=== PATIENT | female | born 1960 | race African-American/Black ===

== ENCOUNTER 2018-09-03 09:29 | Emergency (ER) | payer MEDICAID ==
[~2018-09-03] VITALS: Ht 170.2 cm; Wt 88.0 kg
[2018-09-03] MEDS ORDERED: CYCLOBENZAPRINE 10MG TABLET PO ONE (11:00)
[2018-09-03] MEDS ORDERED: ACETAMINOPHEN 650MG/20.3ML UDC PO ONE (11:00)
[2018-09-03 13:06] VITALS: BP 140/84
== END 2018-09-03 13:08 | disposition home or self-care (01) ==
LOC: ER 09:39
DX: S16.1XXA Strain of muscle, fascia and tendon at neck level, initial encounter (principal); M25.511 Pain in right shoulder; R07.81 Pleurodynia; V89.2XXA Person injured in unspecified motor-vehicle accident, traffic, initial encounter; Y93.89 Activity, other specified; Y92.89 Other specified places as the place of occurrence of the external cause; Y99.8 Other external cause status
CPT/HCPCS: 71045; 73030; 99284

== ENCOUNTER 2020-05-11 12:14 | Emergency (ER) | payer MEDICAID, OTHER ==
[~2020-05-11] VITALS: Ht 152.4 cm; Wt 96.0 kg
[2020-05-11] MEDS ORDERED: KETOROLAC 30MG/ML VIAL IV STA (12:41)
[2020-05-11] MEDS ORDERED: MAGNESIUM/ALUMINUM HYDROXIDE/SIMETHICONE 30ML UDC PO STA (12:41)
[2020-05-11] MEDS ORDERED: ONDANSETRON HCL 4MG/2ML INJ IV STA (12:41)
[2020-05-11] MEDS ORDERED: SODIUM CHLORIDE 0.9% 1,000 ML IV ONE (12:45)
[2020-05-11 13:15] LABS: BASOPHILS % 0.3 % (0.0-2.0); EOSINOPHILS % 2.3 % (0.0-5.0); HEMATOCRIT. 35.2 % (36.0-48.0); HEMOGLOBIN. 11.6 g/dL (12.0-16.0); LYMPHOCYTES % 22.1 % (20.0-50.0); MEAN CORPUSCULAR HEMOGLOBIN 28.8 pg (28.0-32.0); MEAN CORPUSCULAR VOLUME 87.6 fL (81.0-99.0); MEAN PLATELET VOLUME 8.8 fl (7.4-10.4); MONOCYTES % 5.6 % (2.0-8.0); NEUTROPHILS % 69.7 % (40.0-76.0); PLATELET 261 x1000/uL (130-400); RED BLOOD CELL COUNT 4.02 mill/uL (4.2-5.4); RED CELL DISTRIBUTION WIDTH 12.4 % (11.6-14.6)
[2020-05-11 13:17] LABS: CLARITY URINE CLEAR (CLEAR); COLOR URINE YELLOW (YELLOW); KETONES URINE NEGATIVE (NEGATIVE); LEUKOCYTE ESTERASE URINE NEGATIVE (NEGATIVE); NITRITE URINE NEGATIVE (NEGATIVE); OCCULT BLOOD URINE NEGATIVE (NEGATIVE); PROTEIN URINE NEGATIVE (NEGATIVE); SPECIFIC GRAVITY URINE 1.025 (1.005-1.030); UROBILINOGEN URINE 0.2 E.U./dL (0.2-1.0)
[2020-05-11 13:25] LABS: INR 0.9; PROTHROMBIN TIME 9.9 sec (9.6-11.0)
[2020-05-11 13:30] LABS: CHLORIDE 105 mEq/L (98-107)
[2020-05-11 14:47] VITALS: BP 184/91
== END 2020-05-11 15:09 | disposition home or self-care (01) ==
LOC: ER 12:14
DX: R10.9 Unspecified abdominal pain (principal); Z98.51 Tubal ligation status
CPT/HCPCS: 36415; 74176; 80053; 81003; 83690; 85025; 85610; 93005; 96361; 96374; 96375; 99285; J1885; J2405; J7030

== ENCOUNTER 2023-12-25 12:36 | Emergency (ER) | payer MEDICAID, OTHER ==
[~2023-12-25] VITALS: Ht 152.4 cm; Wt 97.0 kg
[2023-12-25 12:40] VITALS: O2SAT 97
[2023-12-25] MEDS: KETOROLAC 30MG/ML VIAL IM ONE (14:49)
[2023-12-25] MEDS ORDERED: CYCL10TA21 MT (15:20)
[2023-12-25 15:32] VITALS: BP 171/79; PULSE 93; RESP 18; TEMP 98.2
== END 2023-12-25 15:32 | disposition home or self-care (01) ==
LOC: ER 13:58
DX: R51.9 Headache, unspecified (principal); I10 Essential (primary) hypertension; Z98.51 Tubal ligation status
CPT/HCPCS: 96372; 99283; J1885; Z7610